=== PATIENT | female | born 1990 | race Caucasian/White ===

== ENCOUNTER 2024-07-12 08:14 | Day surgery (SDC) | payer OTHER ==
[2024-07-10 13:48] VITALS: BMI 29.2
[2024-07-12] MEDS ORDERED: PROPOFOL 40 ML ONE (09:17)
[2024-07-12] MEDS ORDERED: LIDOCAINE HCL/PF 2% SDV 5ML VIAL ONE (09:17)
[2024-07-12 10:17] VITALS: RESP 19; TEMP 97.5
[2024-07-12 10:18] VITALS: BP 110/62; PULSE 64
== END 2024-07-12 10:22 | disposition home or self-care (01) ==
LOC: FASU-ENDO 08:14
PROVIDERS: ATTEND Internal Medicine Gastroenterology
PROC: 0DB68ZX Excision of Stomach, Via Natural or Artificial Opening Endoscopic, Diagnostic (ICD-10-PCS; 2024-07-12)
PROC: 0DB98ZX Excision of Duodenum, Via Natural or Artificial Opening Endoscopic, Diagnostic (ICD-10-PCS; principal; 2024-07-12 09:36)
DX: K29.80 Duodenitis without bleeding (principal); K29.50 Unspecified chronic gastritis without bleeding; B96.81 Helicobacter pylori [H. pylori] as the cause of diseases classified elsewhere; R10.12 Left upper quadrant pain
CPT/HCPCS: 81025; 88305-TC; 88341-TC; 88342-TC